=== PATIENT | male | born 1950 | race Caucasian/White ===

== ENCOUNTER 2019-05-13 22:14 | Emergency (ER) | payer SELFPAY ==
[~2019-05-13] VITALS: Ht 172.7 cm; Wt 72.6 kg
[~2019-05-13 22:14] MED LIST: ACET500; CIPR500 PO; CLOBETTC; SULTRIDS
[2019-05-13] MEDS ORDERED: CHLO25B PO (22:54)
[2019-05-13 23:37] LABS: BASOPHILS ABSOLUTE AUTO 0.09 K/mm3 (0.00-0.23); BASOPHILS PERCENT AUTO 1 % (0-2); EOSINOPHILS ABSOLUTE AUTO 0.47 K/mm3 (0.00-0.68); EOSINOPHILS PERCENT AUTO 7 % (0-6); Hematocrit 47.6 % (37.0-53.0); IMMATURE GRAN ABSOLUTE AUTO 0.01 K/mm3 (0.00-0.10); IMMATURE GRAN PERCENT AUTO 0 % (0-1); LYMPHOCYTES ABSOLUTE AUTO 2.35 K/mm3 (0.84-5.20); LYMPHOCYTES PERCENT AUTO 32 % (21-46); MONOCYTES ABSOLUTE AUTO 0.79 K/mm3 (0.16-1.47); MONOCYTES PERCENT AUTO 11 % (4-13); Mean Corpuscular HGB 31.4 pg (26.0-34.0); Mean Corpuscular HGB Conc 33.6 g/dL (31.5-36.5); Mean Corpuscular Volume 94 fL (80-100); Mean Platelet Volume 10.3 fL (9.1-12.4); NEUTROPHILS ABSOLUTE AUTO 3.55 K/mm3 (1.96-9.15); NEUTROPHILS PERCENT AUTO 49 % (41-73); Platelet Count 298 K/mm3 (150-400); RDW Coefficient Variation 13.5 % (11.7-14.2); RDW Standard Deviation 47.1 fL (35.1-46.3); Red Blood Cell Count 5.09 M/mm3 (4.30-5.90); White Blood Cell Count 7.26 K/mm3 (4.00-11.30)
[2019-05-13 23:52] LABS: Alanine Aminotransfer (ALT/SGP 20 U/L (12-78); Albumin, Blood 3.3 g/dL (3.4-5.0); Albumin/Globulin Ratio 0.8 (0.8-1.8); Alk Phos 94 U/L (50-136); Anion Gap 4 mmol/L (6-16); Aspartate Aminotrans (AST/SGOT 16 U/L (12-37); Bilirubin, Total 0.3 mg/dL (0.1-1.0); Blood Urea Nitrogen 13 mg/dL (8-24); Bun/Creatinine Ratio 17.4 (12.0-20.0); CO2, Blood 30 mmol/L (21-32); Calcium, Blood 8.4 mg/dL (8.5-10.1); Chloride, Blood 104 mmol/L (98-108); Creatinine, Blood 0.75 mg/dL (0.60-1.20); Globulin, Blood 4.3 g/dL (2.2-4.0); Glomerular Filtration Rate >60 (60-); Glucose, Blood 102 mg/dL (70-99); Potassium, Blood 3.8 mmol/L (3.5-5.5); Sodium, Blood 138 mmol/L (136-145); Total Protein, Blood 7.6 g/dL (6.4-8.2); Troponin I <0.015 ng/mL (0.000-0.040)
== END 2019-05-14 00:26 | disposition home or self-care (01) ==
LOC: ER 22:14
PROVIDERS: Emergency Medicine
DX: R07.9 Chest pain, unspecified (principal); Z79.899 Other long term (current) drug therapy; F17.210 Nicotine dependence, cigarettes, uncomplicated
CPT/HCPCS: 36415; 80053; 84484; 85025; 93005; 93010; 99283-25

== ENCOUNTER 2020-08-14 23:13 | Inpatient (IN) | payer OTHER, MEDICARE ==
[~2020-08-14] VITALS: Ht 167.6 cm; Wt 74.7 kg
[~2020-08-14 23:13] MED LIST changes: +CHLO25B PO
[2020-08-15] MEDS ORDERED: ALBU90OI INH (00:19)
[2020-08-15] MEDS ORDERED: ATOR20 PO (00:19)
[2020-08-15 01:58] LABS: Alanine Aminotransfer (ALT/SGP 26 U/L (12-78); Albumin, Blood 3.5 g/dL (3.4-5.0); Albumin/Globulin Ratio 0.9 (0.8-1.8); Alk Phos 91 U/L (50-136); Anion Gap 9 mmol/L (6-16); Aspartate Aminotrans (AST/SGOT 13 U/L (12-37); BASOPHILS ABSOLUTE AUTO 0.12 K/mm3 (0.00-0.23); BASOPHILS PERCENT AUTO 1 % (0-2); Bilirubin, Total 0.6 mg/dL (0.1-1.0); Blood Urea Nitrogen 22 mg/dL (8-24); Bun/Creatinine Ratio 25.6 (12.0-20.0); CO2, Blood 26 mmol/L (21-32); Calcium, Blood 8.7 mg/dL (8.5-10.1); Chloride, Blood 103 mmol/L (98-108); Creatinine, Blood 0.86 mg/dL (0.60-1.20); EOSINOPHILS ABSOLUTE AUTO 0.79 K/mm3 (0.00-0.68); EOSINOPHILS PERCENT AUTO 8 % (0-6); Glomerular Filtration Rate >60 (60-); Glucose, Blood 131 mg/dL (70-99); Hematocrit 46.3 % (37.0-53.0); Hemoglobin 15.1 g/dL (13.5-17.5); IMMATURE GRAN ABSOLUTE AUTO 0.08 K/mm3 (0.00-0.10); IMMATURE GRAN PERCENT AUTO 1 % (0-1); LYMPHOCYTES ABSOLUTE AUTO 1.74 K/mm3 (0.84-5.20); LYMPHOCYTES PERCENT AUTO 18 % (21-46); MONOCYTES ABSOLUTE AUTO 0.82 K/mm3 (0.16-1.47); MONOCYTES PERCENT AUTO 8 % (4-13); Mean Corpuscular HGB Conc 32.6 g/dL (31.5-36.5); Mean Corpuscular Volume 92 fL (80-100); NEUTROPHILS ABSOLUTE AUTO 6.34 K/mm3 (1.96-9.15); NEUTROPHILS PERCENT AUTO 64 % (41-73); Platelet Count 271 K/mm3 (150-400); Potassium, Blood 2.9 mmol/L (3.5-5.5); RDW Coefficient Variation 12.8 % (11.7-14.2); RDW Standard Deviation 43.6 fL (35.1-46.3); Red Blood Cell Count 5.03 M/mm3 (4.30-5.90); Sodium, Blood 138 mmol/L (136-145); Total Protein, Blood 7.5 g/dL (6.4-8.2); Troponin I <0.015 ng/mL (0.000-0.040); White Blood Cell Count 9.89 K/mm3 (4.00-11.30)
[2020-08-15 02:06] LABS: Influenza A, PCR Negative (NEGATIVE); Influenza B, PCR Negative (NEGATIVE); Resp Syncytial Virus, PCR Negative (NEGATIVE); SARS-Cov-2 (COVID-19) PCR, MMC Negative (NEGATIVE)
--- NOTE | 2020-08-15 02:50 | NUR ---
REPORT RECIEVED FROM PRESLEY OLIVA RN, AT 0245 AND AWAITING PT T/F TO ROOM 325.
--- NOTE | 2020-08-15 03:10 | NUR ---
PT T/F TO ROOM 325 VIA ELADIO W/ AT BEDSIDE AT 0300. HE DENIES SOB, PAIN AND ALL OTHER COMPLAINTS. PT ORIENTED TO ROOM AND CALL SYSTEM. HE HAS GARBLED SPEECH BUT DENTURES WERE LEFT AT HOME. PLANS TO BRING THEM IN BEFORE BREAKFAST TODAY. HE'S SLIGHTLY [place] BUT A/OX4 AND ANSWERS Q'S APPROPRIATELY. PT TYPICALLY INDEPENDENT AT HOME BUT STAFF WILL FURTHER ASSESS MOBILITY. PT AWARE TO CALL FOR ASSIST OOB. PLAN TO MED PER EMAR. FLU VAC ALREADY HAD THIS SEASON.
--- NOTE | 2020-08-15 06:09 | NUR ---
SUMMARY: PT A/OX4, SPECIFIES NEEDS AND HAS CALL LIGHT IN REACH. HE WAS MADE SBA PENDING FURTHER EVALUATION OF STRENGTH AND MOBILITY. PT T/F'D SELF FROM GURNEY TO BED W/SBA. URINAL PROVIDED AT BEDSIDE. HE REFUSED FLU VAC ON ACCOUNT OF RECIEVING ONE ALREADY IN . HE WAS COVID (-) IN ER W/LS IMPROVED FROM ER REPORT. LUNGS WERE SLIGHTLY TIGHT W/INTERMITTEND WHEEZES BUT PT DENIED SOB AND NO RESP DISTRESS OBSERVED. SPO2 IS WNL ON RA. HE'S NSR ON TELEMETRY, HR 80'S-90'S BPM. 6OMEQ K-RIDER BEING RECIEVED FOR K+ 2.9. ROCEPHIN AND AZITHROMYCIN RECIEVED IN ER FOR PROBABLE L.LOWER LOBE PNM AND IV SOLUMEDROL BEING RECIVED. BLOOD CX'S PENDING. PT HAS PSORIASIS TO HANDS, ELBOWS AND KNEES BUT NO SBD OBSERVED. NO ACUTE CHANGES, VSS/AFEBRILE. WCTM/REPORT TO DAY RN.
--- NOTE | 2020-08-15 16:11 | NUR ---
SHIFT SUMMARY- PT ALERT AND ORIENTED, INDEPENDENT IN THE ROOM. PT COMPLETED THREE K RYDERS TODAY AT AROUND 0930 THIS MORNING. POTASSIUM WAS AT 2.9 UP TO 3.6 AFTER THE IV POTASSIUM. PT HAS DENIED ANY CP T/O THE DAY. PLAN IS FOR POSSIBLE DC HOME TOMORROW. IV SOLUMEDROL HAS BEEN CHANGED TO Q8 FROM Q6. PT HAS WHEEZES T/O LUNG PARNELL, AND SOUNDS TIGHT. PER RT PT HAD SOME RALES IN LLL UNABLE TO HEAR THOSE AT THE TIME OF ASSESSMENT. PT IN BED CALL LIGHT IN REACH CALLS APPROPRIATELY. WILL PASS ON TO NIGHT RN IN BEDSIDE REPORT.
--- NOTE | 2020-08-16 01:07 | NUR ---
70 year old MAle continues on IV solumedrol for COPD with helpful effect. PT is on room air and active in room without complaints,. He is on tele monitoring SR with rates in 90s. He has been current everyday smoker for 50 plus years. Up indep in room able to make needs known.
--- NOTE | 2020-08-16 07:15 | NUR ---
PT GAVE ME PERMISSION TO HELP CARE FOR THEM ON 08/16/2020.
[2020-08-16] MEDS ORDERED: IPRAT-ALBUT 0.5-3 ML INH (10:22)
[2020-08-16] MEDS ORDERED: PRED20 PO (10:23)
--- NOTE | 2020-08-16 11:41 | NUR ---
DISCHARGE NOTE- PT WAS GIVEN VERBAL AND WRITTEN DISCHARGE INSTRUCTIONS AND ACKNOWLEDGED UNDERSTANDING OF THEM. SPOKE TO DR OCHOA THIS MORNING ABOUT THE PT BEING WORKED UP AND ANXIOUS READY TO GET OUT OF HERE. OK TO HOLD IV STEROIDS, PT WILL TAKE HIS FIRST DOSE OF PO STEROIDS TODAY AFTER DISCHARGE. PT IS AWARE HE NEEDS TO TAKE THESE MEDS SOON HE PICKS IT UP FROM THE PHARMACY. MEDS FAXED TO THE [facility] PER PT REQUEST. IV AND TELE DC'D AT THE TIME OF DISCHARGE TEACHING. UNABLE TO REACH PT SPOUSE BY PHONE. HE CALLED HIS DAUGHTER WHO IS IN ROUTE TO PICK HIM UP. PT WILL BE ESCORTED OUT VIA WC BY STAFF AT THAT TIME.
== END 2020-08-16 11:58 | disposition home or self-care (01) | DRG 189 ==
LOC: ER 23:13 → MEDS 08-15 02:52
PROVIDERS: Emergency Medicine; Physician Assistant; ADMIT Internal Medicine
DX: J96.01 Acute respiratory failure with hypoxia (principal); J44.1 Chronic obstructive pulmonary disease with (acute) exacerbation; J96.02 Acute respiratory failure with hypercapnia; I10 Essential (primary) hypertension; E87.6 Hypokalemia; Z20.822 Contact with and (suspected) exposure to COVID-19; F17.210 Nicotine dependence, cigarettes, uncomplicated
CPT/HCPCS: 0241U; 36415; 71045; 80053; 83605; 83880; 84132; 84145; 84484; 85025; 87040; 93005; 93010; 94640; 94644; 94760; 96365; 96367; 96375; 99285-25; J0456; J0696; J1650; J2930; J3480; J7050

== ENCOUNTER 2022-01-04 18:12 | Inpatient (IN) | payer OTHER ==
[~2022-01-04] VITALS: Ht 170.2 cm; Wt 72.6 kg
[~2022-01-04 18:12] MED LIST changes: +ALBU90OI INH; +ATOR20 PO; +IPRAT-ALBUT 0.5-3 ML INH; +PRED20 PO
[2022-01-04 19:13] LABS: BASOPHILS ABSOLUTE AUTO 0.09 K/mm3 (0.00-0.23); BASOPHILS PERCENT AUTO 1 % (0-2); EOSINOPHILS ABSOLUTE AUTO 0.54 K/mm3 (0.00-0.68); EOSINOPHILS PERCENT AUTO 7 % (0-6); Hematocrit 41.9 % (37.0-53.0); Hemoglobin 13.8 g/dL (13.5-17.5); IMMATURE GRAN ABSOLUTE AUTO 0.02 K/mm3 (0.00-0.10); IMMATURE GRAN PERCENT AUTO 0 % (0-1); LYMPHOCYTES ABSOLUTE AUTO 1.28 K/mm3 (0.84-5.20); LYMPHOCYTES PERCENT AUTO 17 % (21-46); MONOCYTES ABSOLUTE AUTO 0.56 K/mm3 (0.16-1.47); MONOCYTES PERCENT AUTO 8 % (4-13); Mean Corpuscular HGB 30.2 pg (26.0-34.0); Mean Corpuscular HGB Conc 32.9 g/dL (31.5-36.5); Mean Corpuscular Volume 92 fL (80-100); Mean Platelet Volume 9.9 fL (9.1-12.4); NEUTROPHILS ABSOLUTE AUTO 4.97 K/mm3 (1.96-9.15); NEUTROPHILS PERCENT AUTO 67 % (41-73); Platelet Count 270 K/mm3 (150-400); RDW Coefficient Variation 13.5 % (11.7-14.2); Red Blood Cell Count 4.57 M/mm3 (4.30-5.90); White Blood Cell Count 7.46 K/mm3 (4.00-11.30)
[2022-01-04 19:32] LABS: Albumin, Blood 3.2 g/dL (3.4-5.0); Albumin/Globulin Ratio 0.9 (0.8-1.8); Bilirubin, Total 0.6 mg/dL (0.1-1.0); Bun/Creatinine Ratio 26.6 (12.0-20.0); Calcium, Blood 8.6 mg/dL (8.5-10.1); Creatinine, Blood 0.86 mg/dL (0.60-1.20); Globulin, Blood 3.4 g/dL (2.2-4.0); Potassium, Blood 4.6 mmol/L (3.5-5.5); Total Protein, Blood 6.6 g/dL (6.4-8.2)
[2022-01-05 01:08] LABS: Influenza A, PCR NEGATIVE (NEGATIVE); Influenza B, PCR NEGATIVE (NEGATIVE); Resp Syncytial Virus, PCR NEGATIVE (NEGATIVE); SARS-Cov-2 (COVID-19) PCR, MMC NEGATIVE (NEGATIVE)
[2022-01-05 03:20] LABS: BASOPHILS ABSOLUTE AUTO 0.02 K/mm3 (0.00-0.23); BASOPHILS PERCENT AUTO 0 % (0-2); EOSINOPHILS ABSOLUTE AUTO 0.01 K/mm3 (0.00-0.68); EOSINOPHILS PERCENT AUTO 0 % (0-6); Hematocrit 43.4 % (37.0-53.0); Hemoglobin 14.4 g/dL (13.5-17.5); IMMATURE GRAN ABSOLUTE AUTO 0.02 K/mm3 (0.00-0.10); IMMATURE GRAN PERCENT AUTO 0 % (0-1); LYMPHOCYTES PERCENT AUTO 7 % (21-46); MONOCYTES ABSOLUTE AUTO 0.05 K/mm3 (0.16-1.47); MONOCYTES PERCENT AUTO 1 % (4-13); Mean Corpuscular HGB 30.1 pg (26.0-34.0); Mean Corpuscular HGB Conc 33.2 g/dL (31.5-36.5); Mean Corpuscular Volume 91 fL (80-100); Mean Platelet Volume 9.9 fL (9.1-12.4); NEUTROPHILS ABSOLUTE AUTO 6.83 K/mm3 (1.96-9.15); NEUTROPHILS PERCENT AUTO 92 % (41-73); Platelet Count 257 K/mm3 (150-400); RDW Coefficient Variation 13.4 % (11.7-14.2); RDW Standard Deviation 45.5 fL (35.1-46.3); Red Blood Cell Count 4.78 M/mm3 (4.30-5.90); White Blood Cell Count 7.43 K/mm3 (4.00-11.30)
[2022-01-05 03:38] LABS: Albumin, Blood 3.3 g/dL (3.4-5.0); Albumin/Globulin Ratio 0.9 (0.8-1.8); Bilirubin, Total 0.7 mg/dL (0.1-1.0); Bun/Creatinine Ratio 25.7 (12.0-20.0); Creatinine, Blood 0.97 mg/dL (0.60-1.20); Globulin, Blood 3.7 g/dL (2.2-4.0); Potassium, Blood 3.7 mmol/L (3.5-5.5)
[2022-01-05] MEDS ORDERED: STIOLTO RESPIMAT4 G1 INH (04:57)
[2022-01-05] MEDS ORDERED: ASMANEX HFA13 G6 INH (04:57)
[2022-01-05] MEDS ORDERED: Viagra100 MG PO (04:58)
--- NOTE | 2022-01-05 05:37 | NUR ---
SHIFT SUMMARY PT IS RESTING IN BED. HE IS ABLE TO USE THE URINAL INDEPENDENTLY AND WALK TO REPOSITION FROM BED TO CHAIR. NO SOB OR CHEST PAIN. CONTAINER IN ROOM TO COLLECT SPUTUM SAMPLE. COVID SWAB NEGATIVE. AWAITING ECHO IN THE AM
[2022-01-05 11:48] LABS: CPK Creatine Kinase 63 U/L (39-308)
[2022-01-05] MEDS ORDERED: FURO40 PO (14:08)
[2022-01-05] MEDS ORDERED: POTCHL20ER (14:09)
[2022-01-05] MEDS ORDERED: PRED20 PO (14:11)
--- NOTE | 2022-01-06 05:01 | NUR ---
SHIFT SUMMARY PT HAS BEEN SLEEPING THIS SHIFT. NO COMPLAINTS OF PAIN OR SOB. CALL LIGHT EITHIN REACH
[2022-01-06] MEDS ORDERED: AZIT250 (12:13)
--- NOTE | 2022-01-06 12:26 | NUR ---
PATIENT DISCHARGED Pt doing well, titrated from 1.5lpm to RA. Saturations stable, afebrile, VSS. Lungs clear t/o, no SOB w/ activity observed. MD assessed pt and discharged pt with Z-pack. Called meds into [facility] pharmacy. Removed IV in right/forearm, IV cath intact. Reviewed discharge education, pt verbalized understanding. Patient refused wheelchair escort. Pt left floor at 1225.
== END 2022-01-06 12:20 | disposition home or self-care (01) | DRG 291 ==
LOC: ER 18:12 → MEDS 22:34
PROVIDERS: Emergency Medicine; ADMIT Internal Medicine
DX: I11.0 Hypertensive heart disease with heart failure (principal); I50.31 Acute diastolic (congestive) heart failure; J96.01 Acute respiratory failure with hypoxia; J44.0 Chronic obstructive pulmonary disease with (acute) lower respiratory infection; J44.1 Chronic obstructive pulmonary disease with (acute) exacerbation; J20.9 Acute bronchitis, unspecified; F17.210 Nicotine dependence, cigarettes, uncomplicated; Z20.822 Contact with and (suspected) exposure to COVID-19; Z71.6 Tobacco abuse counseling; Z88.2 Allergy status to sulfonamides; Z79.899 Other long term (current) drug therapy; E78.00 Pure hypercholesterolemia, unspecified
CPT/HCPCS: 0241U; 36415; 71045; 80053; 82550; 83880; 84484; 85025; 87070; 87205; 93005; 93010; 93306; 94640; 94664; 94760; 96372; 96374; 96375; 99285-25; A9270; J1650; J1940; J2930